=== PATIENT | female | born 1965 | race Caucasian/White ===

== ENCOUNTER → 2018-05-04 | Emergency (ER) | payer BC ==
[2018-05-04 19:23] LABS: ABS Basophils 0 10^3/ul (0-0.2); ABS Eosinophils 0.1 10^3/ul (0-0.6); ABS Lymphocytes 1.1 10^3/ul (1.0-4.8); ABS Monocytes 0.3 10^3/ul (0-0.8); ABS Neutrophils 3.5 10^3/ul (1.5-7.7); ABS Nucleated RBC 0 10^3/ul; Eosinophil % 1.6 % (0-6); Hematocrit 44 % (35-47); Hemoglobin 14.7 g/dl (12.0-16.0); Mean Corpuscular HGB Conc 34 g/dl (31-36); Mean Corpuscular Hemoglobin 30 pg (27-31); Mean Corpuscular Volume 87 fL (80-97); Mean Platelet Volume 9.3 um3 (7.4-10.4); Nucleated Red Blood Cells % 0.2; Platelet Count 172 10^3/ul (150-450); Red Blood Count 4.99 10^6/ul (4.00-5.40); Red Cell Distribution Width 14 % (10.5-15); White Blood Count 5.1 10^3/ul (3.5-10.8)
[2018-05-04 19:40] LABS: EGFR Non-African American 66.3 (>60)
[2018-05-04 21:10] LABS: Urine Appearance Clear; Urine Blood Negative (Negative); Urine Color Straw; Urine Ketones Negative (Negative); Urine Protein Negative (Negative); Urine Red Blood Cell Absent (Absent); Urine Specific Gravity 1.005 (1.010-1.030); Urine Urobilinogen Negative (Negative); Urine White Blood Cell 1+(6-10/hpf) (Absent)
--- NOTE | 2018-05-04 22:12 | ED ---
Syncope/Near Syncope - HPI Summary HPI Summary: Patient is a 51 y/o F w/ c/o syncopal episode three days ago. She states just prior to episode she felt nauseated. Patient denies LOC and trauma, states she experienced the syncopal episode at work. She notes an episode of near syncope some time afterwards as well. Patient reports that she has never had a syncopal episode previously, denies PMHx of seizures. She also notes dizziness, lightheadedness, STERN, decreased appetite and intermittent blurry vision since the episode. Patient also notes her chest feels "weird". She denies fever, chills, ear pain, sore throat, neck pain, SOB, ABD pain, back pain, dysuria, hematuria, blood in the stool, edema, bruising, rashes, anxiety, and depression. On triage, pain is rated 5/10, nothing is noted to aggravate/ alleviate Sx. Home medications and allergies are reviewed. - History Of Current Complaint Chief Complaint: EDSyncope Hx Obtained From: Patient Onset/Duration: Lasting Days - syncopal episode three days ago, Still Present - dizziness, lightheadedness, STERN, decreased appetite, Resolved - syncope Timing: Constant - dizziness, lightheadedness, STERN, decreased appetite Associated Head Trauma: No Aggravating Factor(s): Nothing Alleviating Factor(s): Nothing Associated Signs And Symptoms: Chest Pain - states her chest feels "weird", Dizzy, Headache, Lightheadedness, Other - denies fever, chills, ear pain, sore throat, neck pain, SOB, ABD pain, back pain, dysuria, hematuria, blood in the stool, edema, bruising, rashes, anxiety, and depression; endorses decreased appetite and blurry vision - Allergies/Home Medications Allergies/Adverse Reactions: Allergies Allergy/AdvReac Type Severity Reaction Status Date / Time Latex, Natural Rubber Allergy Rash Verified 05/04/18 18:44 PMH/Surg Hx/FS Hx/Imm Hx Endocrine/Hematology History: Denies: Hx Diabetes Cardiovascular History: Denies: Hx Hypertension Respiratory History: Reports: Hx Asthma - PRN INHALER Musculoskeletal History: Reports: Hx Arthritis Sensory History: Reports: Hx Contacts or Glasses - GLASSES Denies: Hx Hearing Aid Opthamlomology History: Reports: Hx Contacts or Glasses - GLASSES Neurological History: Reports: Hx Migraine - STRESS INDUCED- TREATS WITH SLEEP - Cancer History Hx Chemotherapy: No Hx Radiation Therapy: No - Surgical History Surgery Procedure, Year, and Place: 2 NECK SURGERIES- 2006, 2008. LAPAROSCOPY- SEVERAL. BACK SURGERY FOR LIPOMA. HYSTERECTOMY Hx Anesthesia Reactions: No Infectious Disease History: No Infectious Disease History: Denies: Traveled Outside the [place] in Last 30 Days - Family History Known Family History: Negative: Blood Disorder - Social History Alcohol Use: None Substance Use Type: Reports: None Smoking Status (MU): Never Smoked Tobacco Review of Systems Positive: Other - NEGATIVE: trauma . Negative: Fever, Chills Positive: Blurred Vision Negative: Sore Throat, Ear Ache Positive: Chest Pain - chest feels "weird" Negative: Shortness Of Breath Positive: Nausea, Other - POSITIVE: decreased appetite . Negative: Abdominal Pain Positive: other - NEGATIVE: blood in stool . Negative: dysuria, hematuria Positive: Other - NEGATIVE: back/neck pain . Negative: Edema Negative: Rash, Bruising Neurological: Other - dizziness, light-headedness Positive: Headache, Syncope - no LOC Negative: Anxious, Depressed All Other Systems Reviewed And Are Negative: No Physical Exam - Summary Physical Exam Summary: Appearance: Alert, conversive, nontoxic appearing Skin: Warm, dry, no mottling, no rashes, no contusions HEENT: EOMI, PERRL, moist mucous membranes Neck: No masses on the neck, supple Respiratory: Clear to auscultation, breath sounds present, no rales, no rhonchi , no wheezes Cardiovascular: RRR, pulses are symmetrical in both lower and upper extremities Abdomen: Soft, non-tender Bowel Sounds: Present Musculoskeletal: No CVA tenderness, no obvious deformity, moving all extremities in a grossly normal manner Neurological: A&Ox3, CN II-XII Intact, moving all extremities symmetrically; GCS 15 Psychiatric: Normal affect and mood Triage Information Reviewed: Yes Vital Signs On Initial Exam: Initial Vitals Temp Pulse Resp BP Pulse Ox 97.2 F 94 16 125/79 98 05/04/18 18:40 05/04/18 18:40 05/04/18 18:40 05/04/18 18:40 05/04/18 18:40 Vital Signs Reviewed: Yes Diagnostics - Vital Signs Vital Signs Temp Pulse Resp BP Pulse Ox 05/04/18 18:40 97.2 F 94 16 125/79 98 - Laboratory Lab Results: Lab Results 05/04/18 05/04/18 05/04/18 Range/Units 19:13 19:13 19:13 WBC 5.1 (3.5-10.8) 10^3/ul RBC 4.99 (4.00-5.40) 10^6/ul Hgb 14.7 (12.0-16.0) g/dl Hct 44 (35-47) % MCV 87 (80-97) fL MCH 30 (27-31) pg MCHC 34 (31-36) g/dl RDW 14 (10.5-15) % Plt Count 172 (150-450) 10^3/ul MPV 9.3 (7.4-10.4) um3 Neut % (Auto) 69.2 (38-83) % Lymph % (Auto) 22.0 L (25-47) % [place] % (Auto) 6.3 (0-7) % Eos % (Auto) 1.6 (0-6) % Baso % (Auto) 0.9 (0-2) % Absolute Neuts (auto) 3.5 (1.5-7.7) 10^3/ul Absolute Lymphs (auto) 1.1 (1.0-4.8) 10^3/ul Absolute Monos (auto) 0.3 (0-0.8) 10^3/ul Absolute Eos (auto) 0.1 (0-0.6) 10^3/ul Absolute Basos (auto) 0 (0-0.2) 10^3/ul Absolute Nucleated RBC 0 10^3/ul Nucleated RBC % 0.2 Sodium 141 (135-145) mmol/L Potassium 4.0 (3.5-5.0) mmol/L Chloride 107 (101-111) mmol/L Carbon Dioxide 29 (22-32) mmol/L Anion Gap 5 (2-11) mmol/L BUN 13 (6-24) mg/dL Creatinine 0.89 (0.51-0.95) mg/dL Est GFR ( Amer) 80.3 (>60) Est GFR (Non-Af Amer) 66.3 (>60) BUN/Creatinine Ratio 14.6 (8-20) Glucose 131 H (70-100) mg/dL Lactic Acid 1.4 (0.5-2.0) mmol/L Calcium 9.5 (8.6-10.3) mg/dL Magnesium 2.2 (1.9-2.7) mg/dL Total Bilirubin 0.40 (0.2-1.0) mg/dL AST 19 (13-39) U/L ALT 16 (7-52) U/L Alkaline Phosphatase 87 (34-104) U/L Troponin I 0.00 (<0.04) ng/mL Total Protein 7.0 (6.4-8.9) g/dL Albumin 4.4 (3.2-5.2) g/dL Globulin 2.6 (2-4) g/dL Albumin/Globulin Ratio 1.7 (1-3) TSH 3.78 (0.34-5.60) mcIU/mL Urine Color Urine Appearance Urine pH (5-9) Ur Specific [place] (1.010-1.030) Urine Protein (Negative) Urine Ketones (Negative) Urine Blood (Negative) Urine Nitrate (Negative) Urine Bilirubin (Negative) Urine Urobilinogen (Negative) Ur Leukocyte Esterase (Negative) Urine WBC (Auto) (Absent) Urine RBC (Auto) (Absent) Ur Squamous Epith Cells (Absent) Urine Bacteria (Absent) Urine Glucose (Negative) 05/04/18 Range/Units 20:49 WBC (3.5-10.8) 10^3/ul RBC (4.00-5.40) 10^6/ul Hgb (12.0-16.0) g/dl Hct (35-47) % MCV (80-97) fL MCH (27-31) pg MCHC (31-36) g/dl RDW (10.5-15) % Plt Count (150-450) 10^3/ul MPV (7.4-10.4) um3 Neut % (Auto) (38-83) % Lymph % (Auto) (25-47) % [place] % (Auto) (0-7) % Eos % (Auto) (0-6) % Baso % (Auto) (0-2) % Absolute Neuts (auto) (1.5-7.7) 10^3/ul Absolute Lymphs (auto) (1.0-4.8) 10^3/ul Absolute Monos (auto) (0-0.8) 10^3/ul Absolute Eos (auto) (0-0.6) 10^3/ul Absolute Basos (auto) (0-0.2) 10^3/ul Absolute Nucleated RBC 10^3/ul Nucleated RBC % Sodium (135-145) mmol/L Potassium (3.5-5.0) mmol/L Chloride (101-111) mmol/L Carbon Dioxide (22-32) mmol/L Anion Gap (2-11) mmol/L BUN (6-24) mg/dL Creatinine (0.51-0.95) mg/dL Est GFR ( Amer) (>60) Est GFR (Non-Af Amer) (>60) BUN/Creatinine Ratio (8-20) Glucose (70-100) mg/dL Lactic Acid (0.5-2.0) mmol/L Calcium (8.6-10.3) mg/dL Magnesium (1.9-2.7) mg/dL Total Bilirubin (0.2-1.0) mg/dL AST (13-39) U/L ALT (7-52) U/L Alkaline Phosphatase (34-104) U/L Troponin I (<0.04) ng/mL Total Protein (6.4-8.9) g/dL Albumin (3.2-5.2) g/dL Globulin (2-4) g/dL Albumin/Globulin Ratio (1-3) TSH (0.34-5.60) mcIU/mL Urine Color Straw Urine Appearance Clear Urine pH 5.0 (5-9) Ur Specific [place] 1.005 L (1.010-1.030) Urine Protein Negative (Negative) Urine Ketones Negative (Negative) Urine Blood Negative (Negative) Urine Nitrate Negative (Negative) Urine Bilirubin Negative (Negative) Urine Urobilinogen Negative (Negative) Ur Leukocyte Esterase 2+ A (Negative) Urine WBC (Auto) 1+(6-10/hpf) A (Absent) Urine RBC (Auto) Absent (Absent) Ur Squamous Epith Cells Present A (Absent) Urine Bacteria Absent (Absent) Urine Glucose Negative (Negative) Result Diagrams: 05/04/18 19:13 05/04/18 19:13 Lab Statement: Any lab studies that have been ordered have been reviewed, and results considered in the medical decision making process. - Radiology CXR Radiology Interpretation Completed By: ED Physician Summary of Radiographic Findings: CXR was normal. - EKG 2109 Cardiac Rate: NL - rate of 74 BPM EKG Rhythm: Sinus Rhythm Summary of EKG Findings: Non specific ST-T changes in leads 2, 3, v3, v1-v2 inverted t-waves Re-Evaluation - Re-Evaluation First Eval Re-Evaluation Time: 21:50 Comment: Discussed results of labs and tests so far. Patient states that she would prefer to be discharged instead of admitted. Course/Dx Course Of Treatment: Patient is a 51 y/o F w/ c/o syncopal episode three days ago. She states just prior to episode she felt nauseated. Patient denies LOC and trauma, states she experienced the syncopal episode at work. She notes an episode of near syncope some time afterwards as well. Patient reports that she has never had a syncopal episode previously, denies PMHx of seizures. She also notes dizziness, lightheadedness, STERN, decreased appetite and intermittent blurry vision since the episode. Patient also notes her chest feels "weird". Physical exam was normal, GCS 15. UA showed squamous epith cells present, WBC 1+ , leukocyte esterase 2+. Labs showed TSH 3.78, trop 0, lactic acid 1.4, glucose 131, WBC 5.1. CXR was normal, EKG showed sinus rhythm with rate of 74 BPM, Non specific ST-T changes in leads 2, 3, v3, v1-v2 inverted t-waves. 2149 - Discussed results of labs and tests so far. Patient states that she would prefer to be discharged instead of admitted. Patient was signed out to Dr. Marlow pending results of brain CT and CTA head/neck. Dx of syncope. - Diagnoses Provider Diagnoses: Syncope Discharge - Sign-Out/Discharge Documenting (check all that apply): Sign-Out Patient Signing out patient TO: Jose E Marlow Receiving patient FROM: Valerie Bridges - Discharge Plan Condition: Good Disposition: HOME Patient Education Materials: Syncope (ED) Referrals: Jack Shay MD [Primary Care Provider] - 3 Days Additional Instructions: Your CT scans were unremarkable, no tumors or vascular problems such as an aneurysm were seen. While the cause of your problem is not entirely clear, it does not appear to be anything dangerous or serious. - Billing Disposition and Condition Condition: GOOD Disposition: Home - Attestation Statements Document Initiated by Scribe: Yes Documenting Scribe: Jay Jay Guadalupe Provider For Whom Alanibe is Documenting (Include Credential): Valerie Bridges MD Scribe Attestation: IJay Jay , scribed for Valerie Bridges MD on 05/07/18 at 1750. Scribe Documentation Reviewed: Yes Provider Attestation: The documentation as recorded by the Jay Jay morales accurately reflects the service I personally performed and the decisions made by me, Valerie Bridges MD
--- NOTE | 2018-05-04 22:29 | ED ---
Progress - Progress Note Progress Note: Patient was signed out from Dr. Bridges, pending CTA head/neck and CT brain at shift change. A brain CT revealed: 6.7 x 4.2 mm lobulated hyperdense structure in the left suprasellar cistern, (2 image 6), may represent small meningioma versus aneurysm of supraclinoid segment of left internal carotid artery. Further evaluation with a CTA is recommended. No evidence of hemorrhage or acute infarct. A head CTA revealed: No acute findings. Tortuous left internal carotid artery there is segment and supraclinoid segment. No evidence of aneurysm, occlusion, or hemodynamically significant stenosis. Persistent bilateral origin of posterior cerebral arteries with diminutive caliber of basilar and bilateral vertebral arteries, normal variant. Dx: syncope. The pt will be discharged, follow up with her PCP in 3 days and is agreeable with this plan. Re-Evaluation - Re-Evaluation First Eval Re-Evaluation Time: 21:50 Comment: Discussed results of labs and tests so far. Patient states that she would prefer to be discharged instead of admitted. Course/Dx - Course Course Of Treatment: Patient was signed out from Dr. Bridges, pending CTA head/ neck and CT brain at shift change. A brain CT revealed: 6.7 x 4.2 mm lobulated hyperdense structure in the left suprasellar cistern, (2. image 6), may represent small meningioma versus aneurysm of supraclinoid. segment of left internal carotid artery. Further evaluation with a CTA is. recommended. No evidence of hemorrhage or acute infarct. A head CTA revealed: No acute findings. Tortuous left internal carotid artery there is segment and supraclinoid segment. No evidence of aneurysm, occlusion, or hemodynamically significant stenosis. Persistent bilateral origin of posterior cerebral arteries with. diminutive caliber of basilar and bilateral vertebral arteries, normal variant. Dx: syncope. The patient will be discharged and follow up with her PCP in 3 days. The patient is agreeable with this plan. - Diagnoses Provider Diagnoses: Syncope Discharge - Sign-Out/Discharge Documenting (check all that apply): Patient Departure - DC - Discharge Plan Condition: Good Disposition: HOME Patient Education Materials: Syncope (ED) Referrals: Jack Shay MD [Primary Care Provider] - 3 Days Additional Instructions: Your CT scans were unremarkable, no tumors or vascular problems such as an aneurysm were seen. While the cause of your problem is not entirely clear, it does not appear to be anything dangerous or serious. - Attestation Statements Document Initiated by Scribe: Yes Documenting Scribe: Huang Bolanos Provider For Whom Scribe is Documenting (Include Credential): Jose E Marlow MD Scribe Attestation: I, Huang Bolanos, scribed for Jose E Marlow MD on 05/05/18 at 0201. Diagnostics - Vital Signs Vital Signs Temp Pulse Resp BP Pulse Ox 05/04/18 23:01 63 120/78 99 05/04/18 23:00 57 98 05/04/18 22:32 84 122/81 97 05/04/18 22:01 65 114/79 96 05/04/18 22:00 66 97 05/04/18 21:33 69 97 05/04/18 21:31 74 132/84 97 05/04/18 18:40 97.2 F 94 16 125/79 98 - Laboratory Lab Results: Lab Results 05/04/18 05/04/18 05/04/18 Range/Units 19:13 19:13 19:13 WBC 5.1 (3.5-10.8) 10^3/ul RBC 4.99 (4.00-5.40) 10^6/ul Hgb 14.7 (12.0-16.0) g/dl Hct 44 (35-47) % MCV 87 (80-97) fL MCH 30 (27-31) pg MCHC 34 (31-36) g/dl RDW 14 (10.5-15) % Plt Count 172 (150-450) 10^3/ul MPV 9.3 (7.4-10.4) um3 Neut % (Auto) 69.2 (38-83) % Lymph % (Auto) 22.0 L (25-47) % [place] % (Auto) 6.3 (0-7) % Eos % (Auto) 1.6 (0-6) % Baso % (Auto) 0.9 (0-2) % Absolute Neuts (auto) 3.5 (1.5-7.7) 10^3/ul Absolute Lymphs (auto) 1.1 (1.0-4.8) 10^3/ul Absolute Monos (auto) 0.3 (0-0.8) 10^3/ul Absolute Eos (auto) 0.1 (0-0.6) 10^3/ul Absolute Basos (auto) 0 (0-0.2) 10^3/ul Absolute Nucleated RBC 0 10^3/ul Nucleated RBC % 0.2 Sodium 141 (135-145) mmol/L Potassium 4.0 (3.5-5.0) mmol/L Chloride 107 (101-111) mmol/L Carbon Dioxide 29 (22-32) mmol/L Anion Gap 5 (2-11) mmol/L BUN 13 (6-24) mg/dL Creatinine 0.89 (0.51-0.95) mg/dL Est GFR ( Amer) 80.3 (>60) Est GFR (Non-Af Amer) 66.3 (>60) BUN/Creatinine Ratio 14.6 (8-20) Glucose 131 H (70-100) mg/dL Lactic Acid 1.4 (0.5-2.0) mmol/L Calcium 9.5 (8.6-10.3) mg/dL Magnesium 2.2 (1.9-2.7) mg/dL Total Bilirubin 0.40 (0.2-1.0) mg/dL AST 19 (13-39) U/L ALT 16 (7-52) U/L Alkaline Phosphatase 87 (34-104) U/L Troponin I 0.00 (<0.04) ng/mL Total Protein 7.0 (6.4-8.9) g/dL Albumin 4.4 (3.2-5.2) g/dL Globulin 2.6 (2-4) g/dL Albumin/Globulin Ratio 1.7 (1-3) TSH 3.78 (0.34-5.60) mcIU/mL Urine Color Urine Appearance Urine pH (5-9) Ur Specific [place] (1.010-1.030) Urine Protein (Negative) Urine Ketones (Negative) Urine Blood (Negative) Urine Nitrate (Negative) Urine Bilirubin (Negative) Urine Urobilinogen (Negative) Ur Leukocyte Esterase (Negative) Urine WBC (Auto) (Absent) Urine RBC (Auto) (Absent) Ur Squamous Epith Cells (Absent) Urine Bacteria (Absent) Urine Glucose (Negative) 05/04/18 Range/Units 20:49 WBC (3.5-10.8) 10^3/ul RBC (4.00-5.40) 10^6/ul Hgb (12.0-16.0) g/dl Hct (35-47) % MCV (80-97) fL MCH (27-31) pg MCHC (31-36) g/dl RDW (10.5-15) % Plt Count (150-450) 10^3/ul MPV (7.4-10.4) um3 Neut % (Auto) (38-83) % Lymph % (Auto) (25-47) % [place] % (Auto) (0-7) % Eos % (Auto) (0-6) % Baso % (Auto) (0-2) % Absolute Neuts (auto) (1.5-7.7) 10^3/ul Absolute Lymphs (auto) (1.0-4.8) 10^3/ul Absolute Monos (auto) (0-0.8) 10^3/ul Absolute Eos (auto) (0-0.6) 10^3/ul Absolute Basos (auto) (0-0.2) 10^3/ul Absolute Nucleated RBC 10^3/ul Nucleated RBC % Sodium (135-145) mmol/L Potassium (3.5-5.0) mmol/L Chloride (101-111) mmol/L Carbon Dioxide (22-32) mmol/L Anion Gap (2-11) mmol/L BUN (6-24) mg/dL Creatinine (0.51-0.95) mg/dL Est GFR ( Amer) (>60) Est GFR (Non-Af Amer) (>60) BUN/Creatinine Ratio (8-20) Glucose (70-100) mg/dL Lactic Acid (0.5-2.0) mmol/L Calcium (8.6-10.3) mg/dL Magnesium (1.9-2.7) mg/dL Total Bilirubin (0.2-1.0) mg/dL AST (13-39) U/L ALT (7-52) U/L Alkaline Phosphatase (34-104) U/L Troponin I (<0.04) ng/mL Total Protein (6.4-8.9) g/dL Albumin (3.2-5.2) g/dL Globulin (2-4) g/dL Albumin/Globulin Ratio (1-3) TSH (0.34-5.60) mcIU/mL Urine Color Straw Urine Appearance Clear Urine pH 5.0 (5-9) Ur Specific [place] 1.005 L (1.010-1.030) Urine Protein Negative (Negative) Urine Ketones Negative (Negative) Urine Blood Negative (Negative) Urine Nitrate Negative (Negative) Urine Bilirubin Negative (Negative) Urine Urobilinogen Negative (Negative) Ur Leukocyte Esterase 2+ A (Negative) Urine WBC (Auto) 1+(6-10/hpf) A (Absent) Urine RBC (Auto) Absent (Absent) Ur Squamous Epith Cells Present A (Absent) Urine Bacteria Absent (Absent) Urine Glucose Negative (Negative) Result Diagrams: 05/04/18 19:13 05/04/18 19:13 Lab Statement: Any lab studies that have been ordered have been reviewed, and results considered in the medical decision making process. - Radiology CXR Summary of Radiographic Findings: CXR was normal. - CT Brain CT Interpretation Completed By: ED Physician - 6.7 x 4.2 mm lobulated hyperdense structure in the left suprasellar cistern, (2 image 6), may represent small meningioma versus aneurysm of supraclinoid segment of left internal carotid artery. Further evaluation with a CTA is recommended. No evidence of hemorrhage or acute infarct. Pending official report. head CTA CT Interpretation Completed By: ED Physician - No acute findings. Tortuous left internal carotid artery there is segment and supraclinoid segment. No evidence of aneurysm, occlusion, or hemodynamically significant stenosis. Persistent bilateral origin of posterior cerebral arteries with diminutive caliber of basilar and bilateral vertebral arteries, normal variant. Pending official report. - EKG 2109 Cardiac Rate: NL - rate of 74 BPM EKG Rhythm: Sinus Rhythm Summary of EKG Findings: Non specific ST-T changes in leads 2, 3, v3, v1-v2 inverted t-waves
--- NOTE | 2018-05-04 22:47 | RAD ---
EXAM: CT Head Without Intravenous Contrast EXAM DATE/TIME: 05/04/2018 10:11 PM CLINICAL HISTORY: 52 years old, female; Pain; Headache; Headache not specified; Additional info: Syncope TECHNIQUE: Axial computed tomography images of the head/brain without intravenous contrast. All CT scans at this facility use at least one of these dose optimization techniques: automated exposure control; mA and/or kV adjustment per patient size (includes targeted exams where dose is matched to clinical indication); or iterative reconstruction. COMPARISON: No relevant prior studies available. FINDINGS: Brain: 6.7 x 4.2 mm lobulated hyperdense structure in the left suprasellar cistern, (2 image 6), may represent small meningioma versus aneurysm of supraclinoid segment of left internal carotid artery. Further evaluation with a CTA is recommended. No evidence of acute hemorrhage, infarct, or midline shift. Ventricles: Normal. No ventriculomegaly. Bones/joints: Normal. No acute fracture. Sinuses: Normal as visualized. No acute sinusitis. Mastoid air cells: Normal as visualized. No mastoid effusion. Soft tissues: Normal. IMPRESSION: 6.7 x 4.2 mm lobulated hyperdense structure in the left suprasellar cistern, (2 image 6), may represent small meningioma versus aneurysm of supraclinoid segment of left internal carotid artery. Further evaluation with a CTA is recommended. No evidence of hemorrhage or acute infarct. To contact [facility] with a general question: [facility] - [phone] For direct physician to physician contact: Physician Hotline - [phone] [facility] ([facility] Facility ID #[id number])
--- NOTE | 2018-05-04 23:15 | RAD ---
EXAM: CT Angiography Head With Intravenous Contrast EXAM DATE/TIME: 05/04/2018 10:14 PM CLINICAL HISTORY: 52 years old, female; Pain; Headache; Additional info: Syncope TECHNIQUE: Axial computed tomographic angiography images of the head with intravenous contrast using CT angiography protocol. All CT scans at this facility use at least one of these dose optimization techniques: automated exposure control; mA and/or kV adjustment per patient size (includes targeted exams where dose is matched to clinical indication); or iterative reconstruction. Coronal and sagittal reformatted images were created and reviewed. MIP and 3D reconstructed images were created and reviewed. CONTRAST: 80 ml of OMNI 350 administered intravenously. COMPARISON: No relevant prior studies available. FINDINGS: Right internal carotid artery: Unremarkable. Intracranial segment is patent with no significant stenosis. No aneurysm. Right anterior cerebral artery: Unremarkable. No occlusion or significant stenosis. No aneurysm. Right middle cerebral artery: Unremarkable. No occlusion or significant stenosis. No aneurysm. Right posterior cerebral artery: Unremarkable. No occlusion or significant stenosis. No aneurysm. Right vertebral artery: Unremarkable. No occlusion or significant stenosis. No aneurysm. Left internal carotid artery: Unremarkable. Intracranial segment is patent with no significant stenosis. No aneurysm. Left anterior cerebral artery: Unremarkable. No occlusion or significant stenosis. No aneurysm. Left middle cerebral artery: Unremarkable. No occlusion or significant stenosis. No aneurysm. Left posterior cerebral artery: Diminutive caliber. No occlusion or significant stenosis. No aneurysm. Left vertebral artery: Diminutive caliber. No occlusion or significant stenosis. No aneurysm. Basilar artery: Diminutive caliber. No occlusion or significant stenosis. No aneurysm. IMPRESSION: No acute findings. Tortuous left internal carotid artery there is segment and supraclinoid segment. No evidence of aneurysm, occlusion, or hemodynamically significant stenosis. Persistent bilateral origin of posterior cerebral arteries with diminutive caliber of basilar and bilateral vertebral arteries, normal variant. EXAM: CT Angiography Neck With Intravenous Contrast EXAM DATE/TIME: 05/04/2018 10:14 PM CLINICAL HISTORY: 52 years old, female; Pain; Headache; Additional info: Syncope TECHNIQUE: Axial computed tomographic angiography images of the neck with intravenous contrast using CT angiography protocol. All CT scans at this facility use at least one of these dose optimization techniques: automated exposure control; mA and/or kV adjustment per patient size (includes targeted exams where dose is matched to clinical indication); or iterative reconstruction. Coronal and sagittal reformatted images were created and reviewed. MIP and 3D reconstructed images were created and reviewed. CONTRAST: 80 ml of OMNI 350 administered intravenously. COMPARISON: No relevant prior studies available. FINDINGS: VASCULATURE: Right common carotid artery: Normal. No significant stenosis. No dissection or occlusion. Right internal carotid artery: Normal. Extracranial segment is patent with no significant stenosis. No dissection or occlusion. Right external carotid artery: Normal. No occlusion or significant stenosis. Right vertebral artery: Normal. No significant stenosis. No dissection or occlusion. Left common carotid artery: Normal. No significant stenosis. No dissection or occlusion. Left internal carotid artery: Normal. Extracranial segment is patent with no significant stenosis. No dissection or occlusion. Left external carotid artery: Normal. No occlusion or significant stenosis. Left vertebral artery: Normal. No significant stenosis. No dissection or occlusion. NECK: Bones/joints: Status post anterior fusion with disc spacer placement at C6/C7. IMPRESSION: No evidence of occlusion, stenosis, atherosclerosis, or dissection. COMMENT: Degree of carotid stenosis was determined using NASCET or SRU criteria. Mild: <50% stenosis. Moderate: 50-69% stenosis. Severe: 70-94% stenosis. Near occlusion: 95-99% stenosis. Occluded: 100% stenosis. To contact [facility] with a general question: [facility] - [phone] For direct physician to physician contact: Physician Hotline - [phone] [facility] ([facility] Facility ID #[id number])
[2018-05-04 23:48] VITALS: BP 155/100
--- NOTE | 2018-05-05 08:09 | RAD ---
INDICATION: Syncope COMPARISON: Most recent comparison chest x-rays dated August 12, 2012 TECHNIQUE: Single AP portable view of the chest was obtained. FINDINGS: Image quality is compromised due to the relative inferiority of a portable chest x-ray. The heart and mediastinum exhibit normal size and contour. The lungs are grossly clear. There is no evidence of a large pleural effusion. A plate and screw fixator is incidentally noted at the lower midline cervical spine. IMPRESSION: No radiographic evidence for acute cardiopulmonary abnormality on this portable chest x-ray. [id number]
== END | disposition home or self-care (01) ==
LOC: ED 18:26
DX: R55 Syncope and collapse (principal); R07.9 Chest pain, unspecified; R42 Dizziness and giddiness; R51 Headache
CPT/HCPCS: 36415; 70450; 70496; 70498; 71045; 80053; 81003; 81015; 83605; 83735; 84443; 84484; 85025; 87086; 93005; 99283; Q9967